=== PATIENT | male | born 1945 | race Caucasian/White ===

== ENCOUNTER 2024-06-26 15:24 | Emergency (ER) | payer OTHER ==
--- NOTE | 2024-06-26 16:19 | RAD REPORT ---
EXAMINATION: CT HEAD WITHOUT CONTRAST CLINICAL INDICATION: Male, 78 years old.STROKE ALERT TECHNIQUE: Axial CT images from the skull base to the vertex without intravenous contrast. Coronal an d sagittal reformatted images were created from the data set. One or more of the following dose reduction techniques were used: Automated exposure control, adjustment of the mA and/or kV according to patient size, and/or iterative reconstruction. Unless otherwise specified, incidental findings do not require dedicated imaging follow-up. [id number]. COMPARISON: No prior exam. FINDINGS: INTRACRANIAL: No acute intracranial hemorrhage. No hydrocephalus. No mass effect or midline shift. No significant white matter disease. Cerebral atrophy. VASCULATURE: No visualized abnormalities in the arteries or dural venous sinuses. SCALP/SKULL: No significant soft tissue or osseous abnormalities. SINUSES: The visualized paranasal sinuses and mastoid air cells are predominantly clear. IMPRESSION: No acute intracranial abnormality. Conveyed to Dr. Crews by Dr. Toussaint at 1602 on 06/26/24
--- NOTE | 2024-06-26 16:23 | RAD REPORT ---
EXAMINATION: CT CERVICAL SPINE WITHOUT CONTRAST CLINICAL INDICATION: Male, 78 years old. PAIN TECHNIQUE: Axial CT images through the cervical spine were obtained without intravenous contrast. Sag ittal and coronal reformatted images were created from the data set. One or more of the following dose reduction techniques were used: Automated exposure control, adjustment of the mA and/or kV accor ding to patient size, and/or iterative reconstruction. Unless otherwise specified, incidental findings do not require dedicated imaging follow-up. [id number]. COMPARISON: No prior exam. FINDINGS: ALIGNMENT: Reversal of the normal cervical lordosis likely related to underlying degenerative changes . BONE: Vertebral body heights are maintained. No aggressive osseous lesions. DISCS: Disc height loss present at multiple levels. There is fusion across the right C2-3 posterior e lements which is likely developmental. LEVELS: No significant spinal canal. Multilevel cervical spondylosis is present. No visualized abnorm ality within the spinal canal. SOFT TISSUE: Circumferential thickening of the soft tissues within the posterior oropharynx and at th e hypopharynx. This is at the mucosal pharyngeal space. The uvula also appears thickened. IMPRESSION: No acute cervical spine abnormalities. Nonspecific diffuse thickening of the mucosal pharyngeal soft tissues at the posterior oropharynx and hypopharynx. This could reflect angioedema in the appropriate clinical setting. Motion artifact present.
--- NOTE | 2024-06-26 16:32 | RAD REPORT ---
EXAM: CT CHEST, ABDOMEN AND PELVIS WITHOUT CONTRAST CLINICAL INDICATION: Male, 78 years old PAIN TECHNIQUE: CT chest, abdomen and pelvis was performed, without IV contrast, as per department protoco l. Axial, sagittal and coronal reconstructions were obtained. One or more of the following dose reduction techniques were used: Automated exposure control, adjustment of the mA and/or kV according to the patient size, and/or iterative reconstruction. Unless otherwise specified, incidental findings do not require dedicated imaging follow-up. [id number]. COMPARISON: No prior exam. FINDINGS: The lack of intravenous contrast limits the sensitivity of this exam for evaluation of solid visceral organs, vascular structures, and retroperitoneum. Chest: LOWER NECK/CHEST WALL: Visualized thyroid gland and soft tissues are normal. LUNGS AND AIRWAYS: Motion artifact. Some nonspecific ground glass opacities are present in lung bases which may reflect atelectasis. PLEURA: No pleural effusion. No pneumothorax. Hemidiaphragms are normally positioned. MEDIASTINUM AND LYMPH NODES: No mediastinal mass or fluid collection. Normal size mediastinal, hilar, and axillary lymph nodes. THORACIC AORTA: Normal caliber and configuration. PULMONARY ARTERIES: Normal caliber. HEART: Multivessel coronary disease. Probable aortic valve calcifications. No pericardial effusion. Abdomen/Pelvis LIVER: Normal in size and contour. No focal lesion. GALLBLADDER/BILE DUCTS: No biliary ductal dilatation. PANCREAS: Pancreatic atrophy. SPLEEN: Normal size. No focal lesion. ADRENALS: Normal; no mass. KIDNEYS AND URETERS: Bilateral renal lesions which are either benign in appearance or too small to ac curately characterize but statistically benign. GASTROINTESTINAL TRACT: Stomach is non-dilated. Small bowel has normal course and caliber. No colonic wall thickening or pericolonic inflammatory changes. PERITONEUM: No free fluid. LYMPH NODES: No lymphadenopathy. ABDOMINAL AORTA AND OTHER VESSELS: Atherosclerosis without aneurysm. URINARY BLADDER: Normal contour. REPRODUCTIVE ORGANS: No pathologic process. MUSCULOSKELETAL: Bilateral subacute versus chronic rib fractures. This could reflect changes of prior cardiopulmonary resuscitation. T12 compression fracture with up to 60% height loss and some intermixed gas likely due to a nonpathologic compression fracture. This is presumably chronic. ADDITIONAL FINDINGS: None IMPRESSION: 1. No acute findings within the chest, abdomen, or pelvis. 2. Subacute versus chronic bilateral rib and T12 compression fractures.
--- NOTE | 2024-06-26 16:48 | RAD REPORT ---
EXAM: Chest Single View HISTORY: COUGH COMPARISON: None. FINDINGS: LUNGS/PLEURA: The lungs are clear. No pleural effusions or pneumothorax. No pulmonary edema. MEDIASTINUM: The mediastinal silhouette is within normal limits. CARDIAC: Mild cardiomegaly. UPPER ABDOMEN: No significant abnormality. BONES: No acute fracture. LINES/TUBES/OTHER: N/A IMPRESSION: No evidence of acute cardiopulmonary disease.
[2024-06-26 16:56] LABS: Specific Gravity 1.006 (1.005-1.030); Sqamous Epithelial None Seen /HPF (None Seen); Urine Bacteria <20 /HPF (<20); Urine Bilirubin NEGATIVE (Negative); Urine Blood Negative (Negative); Urine Clarity Turbid (Clear); Urine Color Colorless (Yellow); Urine Culture Reflex Order NOT NEEDED; Urine Glucose NEGATIVE (Negative); Urine Ketones NEGATIVE (Negative); Urine Microscopic Reflex YN ORDER UMIC; Urine Mucus Slight /HPF (None Seen); Urine Nitrite NEGATIVE (Negative); Urine Protein NEGATIVE (Negative); Urine RBC <5 /HPF (None Seen); Urine Urobilinogen Normal (Normal); Urine WBC <5 /HPF (<5); Urine Yeast (Budding) Trace /HPF (None Seen); Urine pH 5.5 (5.0-7.0)
[2024-06-26 16:59] LABS: Absolute Eosinophils 0.1 K/uL (0-0.5); Absolute Lymphocytes (CBC) 2.1 K/uL (0.7-4.9); Absolute Monocytes 0.5 K/uL (0.1-1.3); Absolute Neutrophil 3.9 K/uL (1.8-8.0); Basophils % 0.5 % (0-1.3); Eosinophils % 1.9 % (0-4.4); Hematocrit 32.5 % (39.6-49.0); Hemoglobin 10.6 g/dL (13.6-17.9); Lymphocytes % 31.3 % (15.3-44.8); MCH 31.2 pg (27.0-35.0); MCHC 32.5 g/dL (32.0-36.0); MPV 7.1 fL (7.6-11.3); Monocytes % 7.8 % (3.3-12.3); Neutrophils % 58.5 % (41.7-73.7); Platelets 293 thou/uL (152-406); RBC Red Blood Cell Count 3.39 M/uL (4.33-5.43); Red Cell Distribution Width 19.1 % (12.1-15.2)
[2024-06-26 17:00] LABS: Protime INR 1.07
[2024-06-26 17:04] LABS: Barbiturates NEGATIVE (NEGATIVE); Benzodiazepines NEGATIVE (NEGATIVE); Cocaine NEGATIVE (NEGATIVE); METHAMPHETAM NEGATIVE (NEGATIVE); Methadone NEGATIVE (NEGATIVE); Opiates NEGATIVE (NEGATIVE); Phencyclidine NEGATIVE (NEGATIVE); THC Cannibis NEGATIVE (NEGATIVE)
[2024-06-26 17:20] LABS: ALT/SGPT 27 U/L (16-61); Albumin 2.5 g/dL (3.4-5.0); Albumin/Globulin Ratio 0.7 (1.1-1.8); Alkaline Phosphatase 58 U/L (45-117); Anion Gap 7.9 mEq/L (5.0-15.0); BUN Blood Urea Nitrogen 12 mg/dL (7-18); Bicarbonate 23 mEq/L (21-32); Bilirubin Total 0.4 mg/dL (0.2-1.0); Globulin 3.8 g/dL (2.3-3.5); Glomerular Filtration Rate 74 ml/min (=/>90); Glucose Level 111 mg/dL (74-106); Lipase 106 U/L (13-75); NT PRO-BNP 352 pg/mL (<450); Protein, Total 6.3 g/dL (6.4-8.2); Sodium Level 141 mEq/L (136-145); Troponin High Sensitivity 6.5 pg/mL (<58.9)
[2024-06-26 17:23] LABS: AST/SGOT 61 U/L (15-37); Bilirubin Direct < 0.2 mg/dL (0-0.2); Bilirubin Indirect, Calculated 0.2 mg/dL (0.2-0.8); C-Reactive Protein < 2.90 mg/L (<3.00); Magnesium 1.7 mg/dL (1.6-2.4); Potassium 3.9 mEq/L (3.5-5.1)
--- NOTE | 2024-06-26 17:40 | EDPHYS ---
Physician Documentation [facility] Name: Ricardo Diaz Age: 78 yrs Sex: Male : 1945 Arrival Date: 06/26/2024 Time: 15:24 Bed 3 Private MD: ED Physician Jones Crews HPI: 06/26 16:02 This 78 yrs old Male presents to ER via EMS with complaints of Unresponsive. shayna Historical: - Allergies: 15:36 No Known Allergies; ph - PMHx: 15:36 Hypercholesterolemia; Hypertensive disorder; Diabetes mellitus; ph - Immunization history:: Adult Immunizations unknown. - Infectious Disease History:: Denies. - Social history:: Smoking status: unknown. ROS: 16:02 Constitutional: Negative for fever, chills, and weight loss, Eyes: Negative for injury, shayna pain, redness, and discharge, ENT: Negative for injury, pain, and discharge, Neck: Negative for injury, pain, and swelling, Cardiovascular: Negative for chest pain, palpitations, and edema, Respiratory: Negative for shortness of breath, cough, wheezing, and pleuritic chest pain, Abdomen/GI: Negative for abdominal pain, nausea, vomiting, diarrhea, and constipation, Back: Negative for injury and pain, : Negative for injury, bleeding, discharge, and swelling, MS/Extremity: Negative for injury and deformity, Skin: Negative for injury, rash, and discoloration, Psych: Negative for depression, anxiety, suicide ideation, homicidal ideation, and hallucinations, Allergy/Immunology: Negative for hives, rash, and allergies, Endocrine: Negative for neck swelling, polydipsia, polyuria, polyphagia, and marked weight changes, Hematologic/Lymphatic: Negative for swollen nodes, abnormal bleeding, and unusual bruising, 16:02 Skin: Positive for abrasion(s), of the face, 16:02 Neuro: Positive for altered mental status, weakness, Exam: 16:02 Constitutional: This is a well developed, well nourished patient who is awake, alert, shayna and in no acute distress. Eyes: Pupils equal round and reactive to light, extra-ocular motions intact. Lids and lashes normal. Conjunctiva and sclera are non-icteric and not injected. Cornea within normal limits. Periorbital areas with no swelling, redness, or edema. ENT: Nares patent. No nasal discharge, no septal abnormalities noted. Tympanic membranes are normal and external auditory canals are clear. Oropharynx with no redness, swelling, or masses, exudates, or evidence of obstruction, uvula midline. Mucous membranes moist. Neck: Trachea midline, no thyromegaly or masses palpated, and no cervical lymphadenopathy. Supple, full range of motion without nuchal rigidity, or vertebral point tenderness. No Meningismus. Chest/axilla: Normal chest wall appearance and motion. Nontender with no deformity. No lesions are appreciated. Cardiovascular: Regular rate and rhythm with a normal S1 and S2. No gallops, murmurs, or rubs. Normal PMI, no JVD. No pulse deficits. Respiratory: Lungs have equal breath sounds bilaterally, clear to auscultation and percussion. No rales, rhonchi or wheezes noted. No increased work of breathing, no retractions or nasal flaring. Abdomen/GI: Soft, non-tender, with normal bowel sounds. No distension or tympany. No guarding or rebound. No evidence of tenderness throughout. Back: No spinal tenderness. No costovertebral tenderness. Full range of motion. Male : Normal genitalia with no discharge or lesions. Skin: Warm, dry with normal turgor. Normal color with no rashes, no lesions, and no evidence of cellulitis. MS/ Extremity: Pulses equal, no cyanosis. Neurovascular intact. Full, normal range of motion., bilateral aka Psych: Awake, alert, with orientation to person, place and time. Behavior, mood, and affect are within normal limits. 16:02 Head/face: Noted is abrasion(s), that are moderate, of the forehead, right eye and right cheek, 16:02 ECG was reviewed by the Attending Physician. Vital Signs: 15:30 BP 133 / 72; Pulse 84; Resp 18; Temp 97.5; Pulse Ox 99% on R/A; Weight 81.65 kg; ph 16:00 BP 123 / 72; Pulse 85; Resp 18; Pulse Ox 98% on R/A; ph 16:30 BP 91 / 75; Pulse 88; Resp 18; Pulse Ox 98% on R/A; ph 17:00 BP 116 / 70; Pulse 84; Resp 18; Pulse Ox 98% on R/A; ph 17:30 BP 124 / 73; Pulse 89; Resp 18; Pulse Ox 99% on R/A; ph 18:09 BP 141 / 76; Pulse 82; Resp 18; Temp 97.9; Pulse Ox 98% on R/A; ph 19:02 BP 137 / 85; Pulse 80; Resp 18; Temp 98; Pulse Ox 98% on R/A; ph NIH Stroke Scale Scores: 16:38 NIHSS Score: 0 shayna Dante Coma Score: 16:30 Eye Response: spontaneous(4). Motor Response: obeys commands(6). Verbal Response: ph confused(4). Total: 14. 19:02 Eye Response: spontaneous(4). Motor Response: obeys commands(6). Verbal Response: ph oriented(5). Total: 15. Trauma Score (Adult): 16:30 Eye Response: spontaneous(1); Verbal Response: confused(1); Motor Response: obeys ph commands(2); Systolic BP: > 89 mm Hg(4); Respiratory Rate: 10 to 29 per min(4); Dante Score: 14; Trauma Score: 12 19:02 Eye Response: spontaneous(1); Verbal Response: oriented(1); Motor Response: obeys ph commands(2); Systolic BP: > 89 mm Hg(4); Respiratory Rate: 10 to 29 per min(4); Dante Score: 15; Trauma Score: 12 MDM: 15:43 Medical Screening Exam initiated shayna 16:05 Differential Diagnosis altered mental status, sepsis, flu. Differential Diagnosis: [facility] abrasion, closed head injury, contusion, fracture, laceration, multiple trauma, sprain, strain, CVA, electrolyte abnormality, alcohol intoxication, hypoglycemia, intracranial bleed, meningitis, overdose, pneumonia, seizure, sepsis, TIA, UTI, volume depletion. Data reviewed: vital signs, nurses notes, lab test result(s), EKG, radiologic studies, CT scan, plain films. Consideration of Admission/Observation Patient was admitted/placed on observation. Escalation of care including admission/observation considered. I considered the following discharge prescriptions or medication management in the emergency department Medications were administered in the Emergency Department. See MAR. Independent interpretation of the following test(s) in the Emergency Department EKG: See my EKG interpretation above. Test considered but Not performed: MRI: NO MRI BRAIN. Historians other than the Patient: EMS: EMS WELL INFORMED. Care significantly affected by the following chronic conditions: Diabetes, Hypertension, HIGH CHLESTEROL. Counseling: I had a detailed discussion with the patient and/or guardian regarding the historical points, exam findings, and any diagnostic results supporting the discharge/admit diagnosis, lab results, radiology results, the need for further work-up and treatment in the hospital. 06/26 15:48 Order name: Basic Metabolic Panel; Complete Time: 17:29 [facility] 06/26 15:48 Order name: CBC with Diff; Complete Time: 17:29 [facility] 06/26 15:48 Order name: LFT's; Complete Time: 17:29 [facility] 06/26 15:48 Order name: Magnesium; Complete Time: 17:29 [facility] 06/26 15:48 Order name: NT PRO-BNP; Complete Time: 17:29 [facility] 06/26 15:48 Order name: PT-INR; Complete Time: 17:29 [facility] 06/26 15:48 Order name: Troponin HS; Complete Time: 17:29 [facility] 06/26 15:48 Order name: Lipase; Complete Time: 17:29 [facility] 06/26 15:48 Order name: CRP; Complete Time: 17:29 [facility] 06/26 15:54 Order name: ETOH Level; Complete Time: 17:29 [facility] 06/26 15:54 Order name: Ptt, Activated; Complete Time: 17:29 [facility] 06/26 15:54 Order name: Salicylate; Complete Time: 17:29 [facility] 06/26 15:54 Order name: Urinalysis w/ reflexes; Complete Time: 17:29 [facility] 06/26 15:54 Order name: Urine Drug Screen; Complete Time: 17:29 [facility] 06/26 16:52 Order name: Acetaminophen Level; Complete Time: 17:29 [facility] 06/26 15:48 Order name: XRAY Chest (1 view); Complete Time: 17:29 [facility] 06/26 15:48 Order name: CT Stroke Brain w/o Contrast; Complete Time: 16:29 [facility] 06/26 15:50 Order name: CT C Spine; Complete Time: 16:29 [facility] 06/26 15:50 Order name: CT Chest Abdomen Pelvis W/O Contrast; Complete Time: 16:37 [facility] 06/26 15:54 Order name: EKG; Complete Time: 15:55 [facility] 06/26 15:48 Order name: Cardiac monitoring; Complete Time: 16:09 [facility] 06/26 15:48 Order name: EKG - Nurse/Tech; Complete Time: 16: [facility] 06/26 15:48 Order name: IV Saline Lock; Complete Time: 17: [facility] 06/26 15:48 Order name: Labs collected and sent; Complete Time: 16: [facility] 06/26 15:48 Order name: O2 Per Protocol; Complete Time: 16: [facility] 06/26 15:48 Order name: O2 Sat Monitoring; Complete Time: 16: [facility] 06/26 16:38 Order name: Wound Care; Complete Time: 19: [facility] EC:02 Rate is 84 beats/min. Rhythm is regular. QRS [place] is Normal. AR interval is normal. QRS shayna interval is normal. QT interval is normal. No Q waves. T waves are Normal. No ST changes noted. Clinical impression: NSR w/ Non-specific ST/T Changes and No evidence of ischemia. Interpreted by me. Reviewed by me. Administered Medications: 18:01 Drug: NS 0.9% IV 500 ml 500 ml IV at 1 bolus once; to be given as a bolus over 30 ph minutes Volume: 500 ml; Route: IV; Rate: 1 bolus; Site: right forearm; 19:01 Follow up: Response: No adverse reaction; IV Status: Completed infusion; IV Intake: ph 500ml 18:01 Drug: foLIC Acid IVPB 1 mg IVPB once Route: IVPB; Site: right forearm; ph 19:00 Follow up: Response: No adverse reaction; IV Status: Completed infusion ph 18:01 Not Given (Other Intervention Used): Banana Bag - (ns 0.9% 1000 ml, folic acid ivpb 1 ph mg, [id number] mg, multivitamin1 amp) IV at 500 ml/hr once 18:01 Drug: Aspirin PO Chewable Tablet 324 mg PO once; 81 mg tablets x 4 Route: PO; ph 18:59 Follow up: Response: No adverse reaction ph 18:01 Drug: Magnesium Sulfate IVPB 2 grams IVPB once over 2 hrs Route: IVPB; Infused Over: 2 ph hrs; Site: right forearm; 18:59 Follow up: Response: No adverse reaction; IV Status: Completed infusion ph 18:12 Drug: Xgabdivs-Aakigtsbns-Ghkkoikri Topical Ointment 1 application Topical once Route: ph Topical; Site: affected area; 18:59 Follow up: Response: No adverse reaction ph Disposition Summary: 06/26/24 17:40 Discharge Ordered Notes: Location: Home shayna Problem: new shayna Symptoms: have improved shayna Condition: Stable shayna Diagnosis - Fall on same level, unspecified shayna - Unspecified injury of head, initial encounter shayna - Abrasion of other part of head shayna - Alcohol abuse with intoxication shayna - Altered mental status, unspecified shayna Followup: shayna - With: Private Physician - When: 2 - 3 days - Reason: Recheck today's complaints, Continuance of care, Re-evaluation by your physician Followup: shayna - With: Moe Ruth MD - When: 2 - 3 days - Reason: Recheck today's complaints, Re-evaluation by your physician Discharge Instructions: - Discharge Summary Sheet shayna - Abrasion shanya - Alcohol Intoxication shayna - Head Injury, Adult shayna - Fall Prevention in the Home, Adult shayna - Alcohol Intoxication, [id number]-vt-[id number] shayna - Abrasion, Ejjq-ty-[id number] shayna - Fall Prevention in the Home, Adult, Qisv-fx-Spvo shayna - Head Injury, Adult, [id number] shayna - Aspirin and Your Heart [facility] Forms: - Medication Reconciliation Form shayna - Antibiotic Education shayna - Prescription Opioid Use shayna - Patient Portal Instructions [facility] - Leadership Thank You Letter [facility] Prescriptions: - Pepcid 20 mg Oral tablet - take 1 tablet ORAL route every 12 hours for 21 days; 42 tablet; Refills: 0, [facility] Product Selection Permitted - Folic Acid 1 mg Oral Tablet - take 1 tablet ORAL route once daily; 30 tablet; Refills: 0, Product Selection shayna Permitted NIH Stroke Scale - NIH Stroke Score Date: 06/26/2024 Time: 16:38 Total Score = 0 10. Dysarthria (speech clarity - read or repeat words) - 0(Normal) 11. Extinction and Inattention (visual/tactile/auditory/spatial/personal) - 0(No abnormality) 1a. Level of Consciousness (LOC) - 0(Alert) 1b. Level of Consciousness (LOC) (Month \T\ Age) - 0(Both) 1c. LOC Commands (Open \T\ Closes Eyes/Semi Automatic Sewing Machine Operator) - 0(Both) 2. Best Gaze (Lateral Gaze Paresis) - 0(Normal) 3. Visual Field Loss - 0(No visual loss) 4. Facial Palsy - 0(Normal) 5a. Left Arm: Motor (10-second hold) - 0(No drift) 5b. Right Arm: Motor (10-second hold) - 0(No drift) 6a. Left Leg: Motor (5-second hold - always test supine) - 0(No drift) 6b. Right Leg: Motor (5-second hold - always test supine) - 0(No drift) 7. Limb Ataxia (finger/nose \T\ heel/bergman - test with eyes open) - 0(Absent) 8. Sensory Loss (pinprick arms/legs/face) - 0(Normal) 9. Best Language: Aphasia (description/naming/reading) - 0(No aphasia) Initials: [facility] Signatures: Dispatcher [employer] EDMS Jones Crews MD MD cha Hall, Patricia, RN RN ph Corrections: (The following items were deleted from the chart) 15:48 15:48 BASIC METABOLIC PANEL+C.LAB.BRZ ordered. EDMS EDMS 15:48 15:48 CBC+H.LAB.BRZ ordered. EDMS EDMS 15:48 15:48 HEPATIC FUNCTION+C.LAB.BRZ ordered. EDMS EDMS 15:48 15:48 MAGNESIUM+C.LAB.BRZ ordered. EDMS EDMS 15:48 15:48 PROBNP+C.LAB.BRZ ordered. EDMS EDMS 15:48 15:48 PROTIME (+INR)+COAG.LAB.BRZ ordered. EDMS EDMS 15:48 15:48 Troponin High Sensitivity+C.LAB.BRZ ordered. EDMS EDMS 15:48 15:48 LIPASE+C.LAB.BRZ ordered. EDMS EDMS 15:48 15:48 C-REACTIVE PROTEIN+C.LAB.BRZ ordered. EDMS EDMS 15:48 15:48 Chest Single View+RAD.RAD.BRZ ordered. EDMS EDMS 15:48 15:48 CT-STROKE BRAIN W/O CONTRAST+CT.RAD.BRZ ordered. EDMS EDMS 15:49 15:49 Head Angio+CT.RAD.BRZ ordered. EDMS EDMS 15:49 15:49 Neck Angio+CT.RAD.BRZ ordered. EDMS EDMS 16:51 15:54 ACETAMINOPHEN+C.LAB.BRZ ordered. EDMS EDMS 18:01 15:54 Suicide Screening ([place]) ordered. [facility] ph
--- NOTE | 2024-06-26 17:40 | ER ---
Nurse's Notes [facility] Name: Ricardo Diaz Age: 78 yrs Sex: Male : 1945 Arrival Date: 06/26/2024 Time: 15:24 Bed 3 Private MD: Diagnosis: Fall on same level, unspecified;Unspecified injury of head, initial encounter;Abrasion of other part of head;Alcohol abuse with intoxication;Altered mental status, unspecified Presentation: 06/26 15:30 Chief complaint: EMS states: Found in ground by family who had been gone for approx 2 ph hours, appeared to have fallen, was minimally responsive, BP low at 90s systolic, BGL 120s, responsive to painful stimuli for EMS, c-collar in place, abrasion to forehead, does not take blood thinners. Coronavirus screen: Vaccine status: Patient reports being unvaccinated. Ebola Screen: No symptoms or risks identified at this time. Initial Sepsis Screen: Does the patient meet any 2 criteria? No. Patient's initial sepsis screen is negative. Does the patient have a suspected source of infection? No. Patient's initial sepsis screen is negative. Risk Assessment: Do you want to hurt yourself or someone else? Patient reports no desire to harm self or others. Onset of symptoms was June 26, 2024. 15:30 Method Of Arrival: EMS: [facility] ph 15:30 Acuity: MARQUITA 2 ph Historical: - Allergies: 15:36 No Known Allergies; ph - PMHx: 15:36 Hypercholesterolemia; Hypertensive disorder; Diabetes mellitus; ph - Immunization history:: Adult Immunizations unknown. - Infectious Disease History:: Denies. - Social history:: Smoking status: unknown. Screenin:07 [facility] ED Fall Risk Assessment (Adult) History of falling in the last 3 months, ph including since admission Yes- fall prone (multiple falls) (3 pts) Confusion or Disorientation Yes (5 pts) Intoxicated or Sedated Yes (3 pts) Impaired Gait No (0 pts) Mobility Assist Device Used No (0 pt) Altered Elimination Yes (1 pt) Score/Fall Risk Level 3 or more points = High Risk Oriented to surroundings, Maintained a safe environment, Hourly rounding (assess needs \\T\\ fall precautionary measures) done, Used ambulatory aids as needed (educated on \\T\\ assisted with). Abuse screen: Denies threats or abuse. Denies injuries from another. Nutritional screening: No deficits noted. Tuberculosis screening: No symptoms or risk factors identified. Assessment: 15:35 General: Appears in no apparent distress. Behavior is unresponsive. Pain: Unable to use ph pain scale. Patient is unresponsive. Neuro: Level of Consciousness is unresponsive, Oriented to none. Cardiovascular: Capillary refill < 3 seconds in bilateral fingers Patient's skin is warm and dry. Respiratory: Airway is patent Respiratory effort is even, unlabored, Respiratory pattern is regular, symmetrical. GI: Abdomen is round. Derm: Skin is pink, warm \\T\\ dry. Musculoskeletal:. Injury Description: Abrasion sustained to right eye and forehead. Injury Description: Abrasion sustained to right knee. Injury Description: Abrasion sustained to right hand. Injury Description: Abrasion sustained to anterior aspect of right lateral abdomen. 15:38 Reassessment: Code stroke called overhead, physician at bedside to assess pt, pt ph attempted to punch ERP, yelling, "Fuck you you asshole, stop bothering me." Noted to be moving all extremities, taken to CT via stretcher by this nurse. 16:20 Reassessment: Returned from CT, pt more alert, yelling that he needs to pee, assisted ph pt in using urinal, c-collar remains in place, family now at bedside. 18:06 Reassessment: Patient appears in no apparent distress at this time. Patient and/or ph family updated on plan of care and expected duration. Pain level reassessed. Resting w/ eyes closed, family at bedside, d/c pending completion of IV medications. Vital Signs: 15:30 BP 133 / 72; Pulse 84; Resp 18; Temp 97.5; Pulse Ox 99% on R/A; Weight 81.65 kg; ph 16:00 BP 123 / 72; Pulse 85; Resp 18; Pulse Ox 98% on R/A; ph 16:30 BP 91 / 75; Pulse 88; Resp 18; Pulse Ox 98% on R/A; ph 17:00 BP 116 / 70; Pulse 84; Resp 18; Pulse Ox 98% on R/A; ph 17:30 BP 124 / 73; Pulse 89; Resp 18; Pulse Ox 99% on R/A; ph 18:09 BP 141 / 76; Pulse 82; Resp 18; Temp 97.9; Pulse Ox 98% on R/A; ph 19:02 BP 137 / 85; Pulse 80; Resp 18; Temp 98; Pulse Ox 98% on R/A; ph Remington Coma Score: 16:30 Eye Response: spontaneous(4). Motor Response: obeys commands(6). Verbal Response: ph confused(4). Total: 14. 19:02 Eye Response: spontaneous(4). Motor Response: obeys commands(6). Verbal Response: ph oriented(5). Total: 15. Trauma Score (Adult): 16:30 Eye Response: spontaneous(1); Verbal Response: confused(1); Motor Response: obeys ph commands(2); Systolic BP: > 89 mm Hg(4); Respiratory Rate: 10 to 29 per min(4); Remington Score: 14; Trauma Score: 12 19:02 Eye Response: spontaneous(1); Verbal Response: oriented(1); Motor Response: obeys ph commands(2); Systolic BP: > 89 mm Hg(4); Respiratory Rate: 10 to 29 per min(4); Remington Score: 15; Trauma Score: 12 NIH Stroke Scale Scores: 16:38 NIHSS Score: 0 shayna ED Course: 15:30 Patient arrived in ED. ph 15:36 Triage completed. ph 15:36 Arm band placed on Patient placed in an exam room, on a stretcher, on clinical research monitor, ph on pulse oximetry. EKG completed in triage. Results shown to MD. 15:43 Jones Crews MD is Attending Physician. [facility] 16:09 Shavon Mosher RN is Primary Nurse. ph 16:11 CT Stroke Brain w/o Contrast In Process Unspecified. EDMS 16:15 CT C Spine In Process Unspecified. EDMS 16:15 CT Chest Abdomen Pelvis W/O Contrast In Process Unspecified. EDMS 16:30 Urine collected: clean catch specimen, clear. Maintain EMS IV. Dressing intact. Site ph clean \\T\\ dry. Gauge \\T\\ site: 20 RAC. Flushed with 10 mL NS. 16:40 Initial lab(s) drawn, by me, sent to lab. Inserted saline lock: 22 gauge in right ph forearm, using aseptic technique. Blood collected. Flushed with 10 mL NS. 16:44 XRAY Chest (1 view) In Process Unspecified. EDMS 17:39 Moe Ruth MD is Referral Physician. [facility] 18:11 Patient has correct armband on for positive identification. Bed in low position. Call ph light in reach. Side rails up X2. Client placed on continuous cardiac and pulse oximetry monitoring. NIBP monitoring applied. patient monitor on. Door closed. Noise minimized. Warm blanket given. 19:02 No provider procedures requiring assistance completed. IV discontinued, intact, ph bleeding controlled, No redness/swelling at site. Pressure dressing applied. Administered Medications: 18:01 Drug: NS 0.9% IV 500 ml 500 ml IV at 1 bolus once; to be given as a bolus over 30 ph minutes Volume: 500 ml; Route: IV; Rate: 1 bolus; Site: right forearm; 19:01 Follow up: Response: No adverse reaction; IV Status: Completed infusion; IV Intake: ph 500ml 18:01 Drug: foLIC Acid IVPB 1 mg IVPB once Route: IVPB; Site: right forearm; ph 19:00 Follow up: Response: No adverse reaction; IV Status: Completed infusion ph 18:01 Not Given (Other Intervention Used): Banana Bag - (ns 0.9% 1000 ml, folic acid ivpb 1 ph mg, [id number] mg, multivitamin1 amp) IV at 500 ml/hr once 18:01 Drug: Aspirin PO Chewable Tablet 324 mg PO once; 81 mg tablets x 4 Route: PO; ph 18:59 Follow up: Response: No adverse reaction ph 18:01 Drug: Magnesium Sulfate IVPB 2 grams IVPB once over 2 hrs Route: IVPB; Infused Over: 2 ph hrs; Site: right forearm; 18:59 Follow up: Response: No adverse reaction; IV Status: Completed infusion ph 18:12 Drug: Sqzjjdtb-Dtpcfzluje-Smzwbzhin Topical Ointment 1 application Topical once Route: ph Topical; Site: affected area; 18:59 Follow up: Response: No adverse reaction ph Medication: 18:11 VIS not applicable for this client. ph Intake: 19:01 IV: 500ml; Total: 500ml. ph Outcome: 17:40 Discharge ordered by . [facility] 19:02 Discharged to home ambulatory, with family, ph 19:02 Condition: good 19:02 Discharge instructions given to patient, family, Instructed on discharge instructions, follow up and referral plans. medication usage, Demonstrated understanding of instructions, follow-up care, medications, Prescriptions given X 2, 19:03 Patient left the ED. ph NIH Stroke Scale - NIH Stroke Score Date: 06/26/2024 Time: 16:38 Total Score = 0 10. Dysarthria (speech clarity - read or repeat words) - 0(Normal) 11. Extinction and Inattention (visual/tactile/auditory/spatial/personal) - 0(No abnormality) 1a. Level of Consciousness (LOC) - 0(Alert) 1b. Level of Consciousness (LOC) (Month \\T\\ Age) - 0(Both) 1c. LOC Commands (Open \\T\\ Closes Eyes/Corporate Buyer) - 0(Both) 2. Best Gaze (Lateral Gaze Paresis) - 0(Normal) 3. Visual Field Loss - 0(No visual loss) 4. Facial Palsy - 0(Normal) 5a. Left Arm: Motor (10-second hold) - 0(No drift) 5b. Right Arm: Motor (10-second hold) - 0(No drift) 6a. Left Leg: Motor (5-second hold - always test supine) - 0(No drift) 6b. Right Leg: Motor (5-second hold - always test supine) - 0(No drift) 7. Limb Ataxia (finger/nose \\T\\ heel/bergman - test with eyes open) - 0(Absent) 8. Sensory Loss (pinprick arms/legs/face) - 0(Normal) 9. Best Language: Aphasia (description/naming/reading) - 0(No aphasia) Initials: shayna Signatures: Dispatcher [employer] Jones Duckworth MD MD cha Hall, Patricia RN RN ph Corrections: (The following items were deleted from the chart) 18:03 18:02 Reassessment: Code stroke called overhead, physician at bedside to assess ph pt, pt attempted to punch ERP, yelling, "Fuck you you asshole, stop bothering me." Noted to be moving all extremities, taken to CT via stretcher by this nurse ph 18:59 18:59 IV Status: Completed infusion ph ph
[2024-06-26] MEDS ORDERED: FOLIC ACID 5 MG/ML VIAL ONE (17:51)
[2024-06-26] MEDS ORDERED: Magnesium Sulfate 2gm IVPB 2 G/50 ML BAG IV ONE (17:51)
[2024-06-26] MEDS ORDERED: NA CHLORIDE 0.9% 500 ML ONE (17:51)
[2024-06-26 19:21] VITALS: O2SAT 98
[2024-06-26 19:22] VITALS: BP 137/85; TEMP 98
--- NOTE | 2024-06-27 13:05 | EKG ---
Test Date: 2024-06-26 Test Time: 15:37:21 Archery Equipment Repairer: MORALES MEASUREMENT RESULTS: Intervals: Rate: 84 IA: 134 QRSD: 74 QT: 398 QTc: 470 Morrison: P: 7 IA: 134 QRS: -33 T: 100 INTERPRETIVE STATEMENTS: Normal sinus rhythm Left axis deviation Low voltage QRS Inferior infarct, age undetermined Cannot rule out Anterior infarct, age undetermined Abnormal ECG Compared to ECG 06/26/2024 15:35:42 No significant changes Electronically Signed On 06-27-24 13:03:53 DATA ANALYTICS CHIEF SCIENTIST by Jimi Lopez
--- NOTE | 2024-06-27 13:05 | EKG ---
Test Date: 2024-06-26 Test Time: 15:35:42 Supervisor Cigarette Making Department: MORALES MEASUREMENT RESULTS: Intervals: Rate: 84 [place]: 140 QRSD: 76 QT: 402 QTc: 475 Clayton: P: 6 [place]: 140 QRS: -35 T: 125 INTERPRETIVE STATEMENTS: Normal sinus rhythm Left axis deviation Low voltage QRS Inferior infarct, age undetermined Cannot rule out Anterior infarct, age undetermined Abnormal ECG Compared to ECG 10/25/2016 06:59:15 Low QRS voltage now present Myocardial infarct finding still present Electronically Signed On 06-27-24 13:03:55 CHEMICALS DISTILLER by Jimi Lopez
== END 2024-06-26 19:03 | disposition home or self-care (01) ==
LOC: ER 15:24
DX: S00.81XA Abrasion of other part of head, initial encounter (principal); W18.30XA Fall on same level, unspecified, initial encounter; F10.129 Alcohol abuse with intoxication, unspecified; E11.9 Type 2 diabetes mellitus without complications; I10 Essential (primary) hypertension; E78.00 Pure hypercholesterolemia, unspecified
CPT/HCPCS: 96365; 96368; 93005 ×2; 85025; 81001; 80048; 36415; 83735; 85610; 80076; 85730; 84484; 83690; 83880; 80307; 86140; 71250; 72125; 74176; 70450; 71045; 99285; 80143; 80179; 82077; J3475; J7040

== ENCOUNTER 2025-05-01 15:19 | Emergency (ER) | payer OTHER ==
--- NOTE | 2025-05-01 15:45 | ER ---
Nurse's Notes [facility] Name: Ricardo Diaz Age: 79 yrs Sex: Male : 1945 Arrival Date: 05/01/2025 Time: 15:19 Bed 19 Private MD: Diagnosis: Local infection of the skin and subcutaneous tissue, unspecified;Laceration without foreign body of right elbow, initial encounter;Skintear of right forearm Presentation: 05/01 15:33 Chief complaint: Patient states: R elbow injury on Friday. Site is red, swollen, and ll1 just not getting better per S.O. Coronavirus screen: Client denies travel out of the [place] in the last 14 days. At this time, the client does not indicate any symptoms associated with coronavirus-19. Ebola Screen: Patient denies travel to an Ebola-affected area in the 21 days before illness onset. Initial Sepsis Screen: Does the patient meet any 2 criteria? No. Patient's initial sepsis screen is negative. Does the patient have a suspected source of infection? No. Patient's initial sepsis screen is negative. Risk Assessment: Do you want to hurt yourself or someone else? Patient reports no desire to harm self or others. Onset of symptoms was April 27, 2025. 15:33 Method Of Arrival: Wheelchair ll1 15:33 Acuity: MARQUITA 3 ll1 Historical: - Allergies: 15:26 BEE POLLENS; ll1 - PMHx: 15:26 diabetes mellitus; Hypercholesterolemia; Hypertensive disorder; ll1 - Immunization history:: Adult Immunizations up to date. - Infectious Disease History:: Denies. - Social history:: Smoking status: Patient denies any tobacco usage or history of. Screenin:42 [facility] ED Fall Risk Assessment (Adult) History of falling in the last 3 months, cc6 including since admission Yes- single mechanical fall (1 pt) Confusion or Disorientation No (0 pts) Intoxicated or Sedated No (0 pts) Impaired Gait No (0 pts) Mobility Assist Device Used Yes (1 pt) Altered Elimination No (0 pt) Score/Fall Risk Level 3 or more points = High Risk Oriented to surroundings, Maintained a safe environment, Educated pt \T\ family on fall prevention, incl call for assistance when getting out of bed, Assessed \T\ reinforced patient's understanding of fall precautions, Hourly rounding (assess needs \T\ fall precautionary measures) done. Abuse screen: Denies threats or abuse. Denies injuries from another. Nutritional screening: No deficits noted. Tuberculosis screening: No symptoms or risk factors identified. Assessment: 15:40 General: Appears in no apparent distress. uncomfortable, Behavior is calm, cooperative, cc6 appropriate for age. Pain: Complains of pain in anterior aspect of right shoulder and posterior aspect of right shoulder Pain does not radiate. Pain currently is 6 out of 10 on a pain scale. Quality of pain is described as tender, Pain began 2-3 days ago. Neuro: Level of Consciousness is awake, alert, obeys commands, Oriented to person, place, time, situation, Appropriate for age. Cardiovascular: Capillary refill < 3 seconds Patient's skin is warm and dry. Respiratory: Airway is patent Respiratory effort is even, unlabored, Respiratory pattern is regular, symmetrical. GI: No signs and/or symptoms were reported involving the gastrointestinal system. : No signs and/or symptoms were reported regarding the genitourinary system. EENT: No signs and/or symptoms were reported regarding the EENT system. Derm: No signs and/or symptoms reported regarding the dermatologic system. Musculoskeletal: Reports pain in right arm, anterior aspect of left shoulder and posterior aspect of left shoulder has had issues with shoulder in the past was told that he has bone on bone in the shoulder. Vital Signs: 15:33 BP 98 / 72; Pulse 110; Resp 18; Temp 97.2; Pulse Ox 100% on R/A; Pain 9/10; ll1 16:30 BP 105 / 75; Pulse 93; Resp 18; Pulse Ox 100% on R/A; cc6 15:33 Pain Scale: Adult ll1 ED Course: 15:22 Patient arrived in ED. im 15:25 Maris Hair FNP-C is PHCP. kb 15:25 Vikash Swain MD is Attending Physician. kb 15:26 Arm band placed on Patient placed in an exam room, on a stretcher. ll1 15:34 Triage completed. ll1 15:39 Tisha Guerra, RN is Primary Nurse. cc6 15:44 Bed in low position. Call light in reach. Side rails up X 1. Provided Education on: use cc6 of call light. 16:31 No provider procedures requiring assistance completed. Patient did not have IV access cc6 during this emergency room visit. Administered Medications: 15:55 Drug: Cephalexin PO 500 mg PO once Route: PO; cc6 16:32 Follow up: Response: No adverse reaction cc6 Medication: 16:31 VIS not applicable for this client. cc6 Outcome: 15:45 Discharge ordered by MD. grijalva 16:31 Discharged to home via wheelchair, with family, cc6 16:31 Condition: stable 16:31 Discharge instructions given to patient, Instructed on discharge instructions, follow up and referral plans. medication usage, Demonstrated understanding of instructions, follow-up care, medications, Prescriptions given X 1, 16:31 Patient left the ED. cc6 Signatures: Maris Hair, SAUDC CAT-Dayo Arboleda, RN RN ll1 Aria Mccarty Cassandra, RN RN cc6
--- NOTE | 2025-05-01 15:45 | EDPHYS ---
Physician Documentation [facility] Name: Ricardo Diaz Age: 79 yrs Sex: Male : 1945 Arrival Date: 05/01/2025 Time: 15:19 Bed 19 Private MD: ED Physician Vikash Swain HPI: 05/01 15:43 This 79 yrs old Male presents to ER via Wheelchair with complaints of Fall Injury, kb Elbow Injury. 15:43 Pt is a 79 year old male who presents for laceration to right elbow that occurred 5 kb days ago. states pt was using walker, the walker collapsed and caused him to fall. Pt hit right elbow on a wooden chair. States she was trying to take care of it at home, but decided to bring him in today to see if he needed stitches. . Historical: - Allergies: 15:26 BEE POLLENS; ll1 - PMHx: 15:26 diabetes mellitus; Hypercholesterolemia; Hypertensive disorder; ll1 - Immunization history:: Adult Immunizations up to date. - Infectious Disease History:: Denies. - Social history:: Smoking status: Patient denies any tobacco usage or history of. ROS: 15:37 Constitutional: As per HPI kb Exam: 15:37 Constitutional: This is a well developed, well nourished patient who is awake, alert, kb and in no acute distress. Head/Face: Normocephalic, atraumatic. ENT: Moist Mucous membranes Respiratory: Respirations even and unlabored. No increased work of breathing. Talking in full sentences MS/ Extremity: Pulses equal, no cyanosis. Neurovascular intact. Full, normal range of motion. Neuro: Awake and alert, GCS 15, oriented to person, place, time, and situation. 15:37 Skin: skin tears to right forearm, 5cm laceration to right elbow with purulent drainage, no warmth, erythema, swelling. Pt and educated on wound care and need for follow up. Vital Signs: 15:33 BP 98 / 72; Pulse 110; Resp 18; Temp 97.2; Pulse Ox 100% on R/A; Pain 9/10; ll1 16:30 BP 105 / 75; Pulse 93; Resp 18; Pulse Ox 100% on R/A; cc6 15:33 Pain Scale: Adult ll1 MDM: 15:25 Medical Screening Exam initiated kb 15:40 Differential diagnosis: abrasion, laceration, fracture, contusion. Data reviewed: vital kb signs, nurses notes. Test considered but Not performed: X-ray: xray of elbow considered but pt has no bony tenderness and full rom. Historians other than the Patient: Spouse/Significant Other: . Counseling: I had a detailed discussion with the patient and/or guardian regarding the historical points, exam findings, and any diagnostic results supporting the discharge/admit diagnosis, the need for outpatient follow up, a family practitioner, to return to the emergency department if symptoms worsen or persist or if there are any questions or concerns that arise at home. ED course: laceration repair considered but injury occurred 5 days ago and wound has purulent drainage. Pt and educated on wound care and importance of follow up. No erythema, warmth or swelling at this time. Denies fever. Educated on strict return precautions. 05/01 15:36 Order name: Wound Care: clean and dress ; Complete Time: 16:06 kb Administered Medications: 15:55 Drug: Cephalexin PO 500 mg PO once Route: PO; cc6 16:32 Follow up: Response: No adverse reaction cc6 Disposition: 17:56 Co-signature as Attending Physician, Vikash Swain MD I reviewed the patient's care rn provided by the Advanced Practice Provider and agree with the diagnosis and treatment plan. Disposition Summary: 05/01/25 15:45 Discharge Ordered Notes: Location: Home kb Condition: Stable kb Diagnosis - Local infection of the skin and subcutaneous tissue, unspecified kb - Laceration without foreign body of right elbow, initial encounter kb - Skintear of right forearm kb Followup: kb - With: Emergency Department - When: As needed - Reason: Worsening of condition Followup: kb - With: Private Physician - When: 2 - 3 days - Reason: Recheck today's complaints, Continuance of care, Re-evaluation by your physician Discharge Instructions: - Discharge Summary Sheet kb - Laceration Care, Adult, [id number] kb - Skin Tear, [id number] kb - Wound Infection, [id number] kb Forms: - Medication Reconciliation Form kb - Antibiotic Education kb - Prescription Opioid Use kb - Patient Portal Instructions kb - Leadership Thank You Letter kb Prescriptions: - Cephalexin 500 mg Oral Capsule - take 1 capsule ORAL route every 8 hours for 10 days; 30 capsule; Refills: 0, kb Product Selection Permitted Signatures: Maris Hair, CALCINER OPERATOR-C CALCINER OPERATOR-Ckb Vikash Swain MD MD rn Dayo Tineo RN RN ll1 Tisha Guerra RN RN cc6
[2025-05-01] MEDS ORDERED: CEPHALEXIN 250 MG CAP ONE (15:47)
[2025-05-01 17:35] VITALS: TEMP 97.2; O2SAT 100
[2025-05-01 17:37] VITALS: BP 105/75
== END 2025-05-01 16:31 | disposition home or self-care (01) ==
LOC: ER 15:19
DX: S51.011A Laceration without foreign body of right elbow, initial encounter (principal); L08.9 Local infection of the skin and subcutaneous tissue, unspecified
CPT/HCPCS: 99283